=== PATIENT | male | born 1960 | race Caucasian/White ===

== ENCOUNTER 2018-02-27 05:46 | Day surgery (SDC) | payer MEDICAID ==
[2018-02-27] VITALS (14 sets, daily range): BP systolic 127–145; BP diastolic 76–82
[~2018-02-27] VITALS: Ht 162.6 cm; Wt 58.5 kg
[~2018-02-27 05:46] MED LIST: ALLO100T PO; BENA20TA10 PO; FURO40TA5 PO; INSU300I SQ; METO-385 PO
[2018-02-27] MEDS ORDERED: SODIUM CHLORIDE 0.9% 500 ML IV ONE (06:00)
[2018-02-27 07:17] LABS: BASOPHILS % 0.7 % (0.0-2.0); EOSINOPHILS % 6.5 % (0.0-5.0); HEMATOCRIT. 28.7 % (42.0-52.0); HEMOGLOBIN. 9.4 g/dL (14.0-18.0); LYMPHOCYTES % 21.1 % (20.0-50.0); MEAN CORPUSCULAR HEMOGLOBIN 27.3 pg (28.0-32.0); MEAN CORPUSCULAR VOLUME 83.5 fL (80.0-94.0); MEAN PLATELET VOLUME 7.5 fl (7.4-10.4); MONOCYTES % 6.3 % (2.0-8.0); NEUTROPHILS % 65.4 % (40.0-76.0); PLATELET 233 x1000/uL (130-400); RED BLOOD CELL COUNT 3.44 mill/uL (4.7-6.1); RED CELL DISTRIBUTION WIDTH 13.8 % (11.6-14.6)
[2018-02-27 07:25] LABS: PARTIAL THROMBOPLASTIN TIME 25.3 sec (23.4-31.0); PROTHROMBIN TIME 9.7 sec (9.1-11.1)
[2018-02-27] MEDS ORDERED: FENTANYL CITRATE/PF 50MCG/ML 2ML VIAL ONE ×2 (08:38→13:16)
[2018-02-27] MEDS ORDERED: METOCLOPRAMIDE HCL 10MG/2ML VIAL ONE (08:38)
[2018-02-27] MEDS ORDERED: LIDOCAINE HCL 1% 20ML VIAL (Pyxis) INJ ONE ×2 (08:38→12:17)
[2018-02-27] MEDS ORDERED: MIDAZOLAM HCL 2 MG/2 ML VIAL ONE (08:38)
[2018-02-27] MEDS ORDERED: GLYCOPYRROLATE 0.2 MG/ML 2ML VIAL ONE (08:38)
[2018-02-27] MEDS ORDERED: PROPOFOL 200MG/20ML VIAL IV ONE (08:38)
[2018-02-27] MEDS ORDERED: ONDANSETRON HCL 4MG/2ML INJ ONE (08:38)
[2018-02-27] MEDS ORDERED: IOPAMIDOL 20 ML VIAL IT ONE (09:45)
[2018-02-27] MEDS ORDERED: SODIUM BICARBONATE 4% (2.4MEQ) 5ML VIAL IV ONE (12:16)
[2018-02-27] MEDS ORDERED: IOHEXOL-300 50 ML BOTTLE IV ONE (12:17)
[2018-02-27] MEDS ORDERED: FENTANYL CITRATE/PF 50MCG/ML 2ML VIAL IV ONE (13:45)
== END 2018-02-27 15:30 | disposition home or self-care (01) ==
LOC: OR 05:46 → EDSTATUS 10:00 → OR 15:30
PROVIDERS: ATTEND Urology
DX: N13.2 Hydronephrosis with renal and ureteral calculous obstruction (principal); N13.0 Hydronephrosis with ureteropelvic junction obstruction; I10 Essential (primary) hypertension; E11.9 Type 2 diabetes mellitus without complications; Z87.891 Personal history of nicotine dependence
CPT/HCPCS: 36415; 50432; 52332; 71045; 74176; 74420; 80048; 82962; 85025; 85610; 85730; 99152; 99153; C1758; C1769; J2250; J2405; J2765; J3010; J3490; Q9966; Q9967; C2617; J2704; J7040; G0500